=== PATIENT | female | born 1970 | race Two or more races ===

== ENCOUNTER 2022-11-02 19:14 | Emergency (ER) | payer OTHER ==
[~2022-11-02] VITALS: Ht 157.5 cm; Wt 68.0 kg
[2022-11-02 22:53] LABS: BASOPHILS % 1.3 % (0.0-2.0); EOSINOPHILS % 10.6 % (0.0-5.0); HEMATOCRIT. 47.8 % (36.0-48.0); HEMOGLOBIN. 16.2 g/dL (12.0-16.0); LYMPHOCYTES % 20.3 % (20.0-50.0); MEAN CORPUSCULAR HEMOGLOBIN 28.4 pg (28.0-32.0); MEAN CORPUSCULAR VOLUME 83.9 fL (81.0-99.0); MEAN PLATELET VOLUME 6.9 fl (7.4-10.4); MONOCYTES % 5.4 % (2.0-8.0); NEUTROPHILS % 62.4 % (40.0-76.0); PLATELET 346 x1000/uL (130-400); RED CELL DISTRIBUTION WIDTH 13.6 % (11.6-14.6)
[2022-11-02 22:54] LABS: CHLORIDE 107 mEq/L (98-107)
[2022-11-02] MEDS ORDERED: IPRATROPIUM BROMIDE (0.02%) 0.5MG/2.5ML NEB HHN STA (23:46)
[2022-11-02] MEDS ORDERED: MAGNESIUM 2 G PREMIX 50 ML IV STA (23:46)
[2022-11-02] MEDS ORDERED: ALBUTEROL (0.083%) 2.5MG/3ML NEB HHN STA (23:46)
[2022-11-02] MEDS ORDERED: METHYLPREDNISOLONE SOD SUCC 125 MG/2 ML VIAL IV STA (23:46)
[2022-11-03 04:00] VITALS: BP 141/93
[2022-11-03] MEDS ORDERED: METHYLPREDNISOLONE SOD SUCC 125 MG/2 ML VIAL IV NR (04:00)
[2022-11-03] MEDS ORDERED: MAGNESIUM 2 G PREMIX 50 ML IV NR (04:00)
== END 2022-11-03 05:37 | disposition short-term general hospital (02) ==
LOC: ER 20:10
DX: J45.42 Moderate persistent asthma with status asthmaticus (principal); I10 Essential (primary) hypertension; R94.31 Abnormal electrocardiogram [ECG] [EKG]
CPT/HCPCS: 36415; 71045; 80053; 83880; 84484; 85025; 87426; 93005; 94644; 96365; 96375; 99291; C9803; J2930; J3475; Z7610